=== PATIENT | male | born 1985 | race American Indian/Alaskan Native ===

== ENCOUNTER 2016-11-08 19:48 | Emergency (ER) | payer SELFPAY ==
[2016-11-08 19:58] VITALS: BP 157/109
--- NOTE | 2016-11-08 22:50 | Emergency Department Report ---
Eye Injury/Foreign Body - HPI Eye Symptoms: Eye Pain: Yes, Blurred Vision: No, Eye Redness: Yes, Grinding/ Hammering Metal: No, Used Eye Protection: No, Contact Lens Use: No, Recalls Injury: No, Photophobia: No Other History: 31-year-old male past medical history styes right eye presents with complaint of stye to right upper eyelid. Patient states he is having some mucoid discharge from eyelid for 2 days. Denies any significant blurry vision or photophobia. States he last had a stye approximately 4-5 months ago. Eyes contact lens use, denies any trauma to eye. Visible swelling to the upper eyelid on the right side ED Review of Systems ROS: Stated complaint: HEADACHE Other details as noted in HPI Constitutional: denies: chills, fever Eyes: as per HPI. denies: eye pain, eye discharge, vision change ENT: denies: ear pain, throat pain Respiratory: denies: cough, shortness of breath, wheezing Cardiovascular: denies: chest pain, palpitations Endocrine: no symptoms reported Gastrointestinal: denies: abdominal pain, nausea, diarrhea Genitourinary: denies: urgency, dysuria Musculoskeletal: denies: back pain, joint swelling, arthralgia Skin: denies: rash, lesions Neurological: denies: headache, weakness, paresthesias Psychiatric: denies: anxiety, depression Hematological/Lymphatic: denies: easy bleeding, easy bruising ED Past Medical Hx - Past Medical History Additional medical history: styes multiple times - Surgical History Additional Surgical History: abdominal lymph node removal-2004 - Social History Smoking Status: Never Smoker Substance Use Type: None - Medications Home Medications: Home Medications Medication Instructions Recorded Confirmed Last Taken Type Gentamicin 0.3% Ophth Oint 1 applicatio OP Q8H #1 tube 04/12/16 Unknown Rx Gentamicin 0.3% Ophth Soln 2 drops OP Q8H #1 bottle 04/12/16 Unknown Rx Clindamycin [Clindamycin CAP] 300 mg PO Q6H #28 capsule 11/09/16 Unknown Rx Tobramycin 0.3% [Tobrex] 1 drop OD Q4H #1 bottle 11/09/16 Unknown Rx Eye Injury Exam - Exam General: Vital signs noted. No distress. Alert and acting appropriately. - Visual Acuity Right Vision Acuity Degree: 20/30 Eye Exam: Right Lid Foreign Body (right upper eyelid hordeolum), Right Mucous Discharge (some mucopurulent discharge right eyelid), Neither Injection, Neither Chemosis, Neither Abnormal Pupil, Neither EOMI, Neither Eye Foreign Body , Neither Purulent Discharge, Neither Fluorescein Uptake, Neither Fluorescein Uptake (slit lamp), Neither Cell/Flare (slit lamp), Neither Corneal Edema, Neither Photophobia Left Vision Acuity Degree: 20/20 Eye Exam: Neither Injection, Neither Chemosis, Neither Abnormal Pupil, Neither EOMI, Neither Eye Foreign Body, Neither Lid Foreign Body, Neither Mucous Discharge, Neither Purulent Discharge, Neither Fluorescein Uptake, Neither Fluorescein Uptake (slit lamp), Neither Cell/Flare (slit lamp), Neither Corneal Edema, Neither Photophobia Bilateral Vision Acuity Degree: 20/20 Eye Exam: Right Lid Foreign Body, Right Mucous Discharge, Neither Injection, Neither Chemosis, Neither Abnormal Pupil, Neither EOMI, Neither Eye Foreign Body , Neither Purulent Discharge, Neither Fluorescein Uptake, Neither Fluorescein Uptake (slit lamp), Neither Cell/Flare (slit lamp), Neither Corneal Edema, Neither Photophobia ED Course Vital Signs 11/08/16 19:53 Temperature 98.6 F Pulse Rate 79 Respiratory 18 Rate Blood Pressure 157/109 O2 Sat by Pulse 100 Oximetry ED Medical Decision Making - Medical Decision Making A/P: Right upper eyelid blepharitis, hordeolum 1-empiric treatment with clindamycin by mouth 2-tobramycin drops, artificial tears 3-and advised to use warm compresses 4- follow-up with ophthalmology. Patient advised to return to the ED for any blurry vision inability to open eyelid or fevers and chills, headaches associated with worsening swelling around. Extraocular movements are intact and vision is 20/30 overall, 20 out of 30 right eye, 20/20 left eye Critical care attestation.: If time is entered above; I have spent that time in minutes in the direct care of this critically ill patient, excluding procedure time. ED Disposition Clinical Impression: Blepharitis Qualifiers: Blepharitis type: unspecified type Laterality: right Eyelid: upper Qualified Code(s): H01.001 - Unspecified blepharitis right upper eyelid Stye Qualifiers: Laterality: right Eyelid: upper Qualified Code(s): H00.011 - Hordeolum externum right upper eyelid Disposition: TO HOME OR SELFCARE Is pt being admited?: No Does the pt Need Aspirin: No Condition: Stable Instructions: Stye (ED), Blepharitis (ED) Prescriptions: Clindamycin [Clindamycin CAP] 300 mg PO Q6H #28 capsule Tobramycin 0.3% [Tobrex] 1 drop OD Q4H #1 bottle Referrals: CARMEL MCKOY MD [Staff Physician] - 3-5 Days JACQUES SIEGEL MD [Staff Physician] - 3-5 Days Forms: Accompanied Note, Work/School Release Form(ED) Time of Disposition: 00:00
== END 2016-11-09 00:12 | disposition home or self-care (01) ==
LOC: ED 19:48
DX: H00.011 Hordeolum externum right upper eyelid (principal); H01.001 Unspecified blepharitis right upper eyelid
CPT/HCPCS: 99282